=== PATIENT | male | born 1980 | race Hispanic/Latino ===

== ENCOUNTER 2022-04-03 04:29 | Emergency (ER) | payer SELFPAY ==
[2022-04-03] MEDS ORDERED: Ketorolac Tromethamine 30 MG/ML VIAL ONE (05:03)
[2022-04-03 05:19] LABS: #Basophils 0.1 10x3/uL (0.0-0.2); #Eosinphils 0.1 10x3/uL (0.0-0.5); #Monocytes 0.5 10x3/uL (0.0-1.1); #Neutrophils 2.5 10x3/uL (1.5-8.4); %Basophils 1.2 % (0.0-2.0); %Eosinophils 2.8 % (0.0-6.0); %Lymphocytes 37.6 % (18.0-47.0); %Monocytes 9.3 % (0.0-10.0); %Neutrophils 48.9 % (40.0-75.0); Hemoglobin 15.7 g/dL (13.5-17.5); Mean Corpuscular Hemoglobin 30.8 pg (27.0-33.0); Mean Corpuscular Volume 88.2 fl (81.2-95.1); Mean Platelet Volume 9.8 fl (7.4-10.4); Platelet Count 300 10x3/uL (150-450); RBC Distribution Width 12.4 % (11.5-14.5); Red Blood Cell (RBC) Count 5.09 10x6/uL (4.32-5.72)
[2022-04-03 05:33] LABS: ALT (SGPT) 76 U/L (8-55); AST (SGOT) 54 U/L (5-34); Albumin 4.2 g/dL (3.5-5.0); Alkaline Phosphatase 87 U/L (40-110); Anion Gap 13 mmol/L (10-20); BUN (Urea Nitrogen) 13 mg/dL (8.9-20.6); Bilirubin, Total 0.5 mg/dL (0.2-1.2); Calc. Creatinine Clearance 0 mL/min (70-130); Calcium 9.4 mg/dL (7.8-10.44); Carbon Dioxide 22 mmol/L (22-29); Chloride 108 mmol/L (98-107); Estimated GFR 99; Globulin 3.4 g/dL (2.4-3.5); Glucose 101 mg/dL (70-105); Potassium 4.2 mmol/L (3.5-5.1); Protein, Total 7.6 g/dL (6.0-8.3); Sodium 139 mmol/L (136-145)
[2022-04-03 05:37] LABS: CRP (Inflammatory) Less than 0.50 mg/dL (= or < 0.5)
[2022-04-03] MEDS ORDERED: Dexamethasone 10 MG/ML VIAL ONE (06:05)
== END 2022-04-03 04:54 | disposition home or self-care (01) ==
LOC: CSHERS 04:29
DX: M54.6 Pain in thoracic spine (principal)
CPT/HCPCS: 74177; 80053; 85025; 86140; 96374; 96375; J1100; J1885